=== PATIENT | female | born 1970 | race Caucasian/White ===

== ENCOUNTER 2023-02-13 23:48 | Emergency (ER) | payer MEDICAID ==
[~2023-02-13] VITALS: Ht 165.1 cm; Wt 81.8 kg
[2023-02-13] MEDS ORDERED: ALBU18HF12 IH (23:54)
[2023-02-14] MEDS ORDERED: PredniSONE 20 MG TABLET PO ONE (00:30)
[2023-02-14] MEDS ORDERED: IPRATROPIUM BROMIDE 0.5 MG/2.5 ML NEB SOLUTION NEB ONE (00:30)
[2023-02-14] MEDS ORDERED: ALBUTEROL SULFATE 2.5 MG/0.5 ML NEB SOLUTION NEB ONE (00:30)
[2023-02-14 02:00] VITALS: BP 123/71
[2023-02-14] MEDS ORDERED: AZIT250T9 PO (02:13)
[2023-02-14] MEDS ORDERED: ALBU18HF12 IH (02:13)
[2023-02-14] MEDS ORDERED: PRED-554 PO (02:13)
== END 2023-02-14 02:19 | disposition home or self-care (01) ==
LOC: EMS 23:50
DX: J45.901 Unspecified asthma with (acute) exacerbation (principal); R03.0 Elevated blood-pressure reading, without diagnosis of hypertension; F19.10 Other psychoactive substance abuse, uncomplicated; Z98.890 Other specified postprocedural states
CPT/HCPCS: 99285; 71045; 94640; J7512; J7613

== ENCOUNTER → 2024-08-02 | Emergency (ER) | payer MEDICAID ==
[~2024-08-02] VITALS: Ht 162.6 cm; Wt 81.8 kg
[~2024-08-02] MED LIST: ALBU18HF12 IH; ALBU2.5V39 NEB; PRED-554 PO
[2024-08-02 12:15] VITALS: TEMP 98.3
[2024-08-02 12:38] LABS: COVID AG,FIA SOURCE NASAL SWAB
[2024-08-02 13:20] LABS: SARS-COV2 (COVID) ANTIGEN,FIA Negative (Negative)
[2024-08-02 13:21] LABS: INFLUENZA TYPE A NEGATIVE FOR TYPE A (NEGATIVE); INFLUENZA TYPE B NEGATIVE FOR TYPE B (NEGATIVE)
[2024-08-02 15:15] VITALS: BP 149/82; PULSE 56; RESP 18; O2SAT 96
[2024-08-02] MEDS: PredniSONE 20 MG TABLET PO ONE (16:49)
[2024-08-02 17:08] LABS: BASOPHILS % (AUTO) 0.7 % (0.0-2.0); EOSINOPHILS % (AUTO) 2.2 % (1.0-6.0); HEMATOCRIT 40.6 % (36-46); HEMOGLOBIN 13.5 g/dL (12.0-16.0); LYMPHOCYTES # (AUTO) 2.3 K/uL (1.0-4.8); LYMPHOCYTES % (AUTO) 32.1 % (22.0-44.0); MEAN CORPUSCULAR HEMOGLOBIN 29.9 pg (26.0-34.0); MEAN CORPUSCULAR HGB CONC 33.1 G/dL (31.0-37.0); MEAN CORPUSCULAR VOLUME 90 fL (80-100); MONOCYTES # (AUTO) 0.5 K/uL (0.1-1.0); MONOCYTES % (AUTO) 6.6 % (2.0-9.0); NEUTROPHILS # (AUTO) 4.2 K/uL (1.8-7.7); NEUTROPHILS % (AUTO) 58.4 % (40.0-70.0); PLATELET COUNT (AUTO) 251 K/uL (150-450); RED BLOOD CELL COUNT(AUTO) 4.51 MIL/uL (4.00-5.20); RED CELL DISTRIBUTION WIDTH 13.7 % (11.5-14.5); WHITE BLOOD COUNT (AUTO) 7.2 K/uL (4.5-11.0)
[2024-08-02 17:18] LABS: ANION GAP 11 mmol/L (8-16); CALCIUM, TOTAL 8.9 mg/dL (8.8-10.5); CARBON DIOXIDE 26 mmol/L (22-29); CHLORIDE 104 mmol/L (98-107); CREATININE 0.73 mg/dL (0.60-1.30); GLOMERULAR FILTR. RATE CALC > 60 mL/min (>60); GLUCOSE,RANDOM 154 mg/dL (70-110); POTASSIUM 3.4 mmol/L (3.5-5.1); SODIUM SERUM 141 mmol/L (136-145); UREA NITROGEN, BLOOD 16 mg/dL (7-18)
[2024-08-02 17:24] LABS: ALANINE AMINOTRANSFERASE 21 U/L (12-78); ALBUMIN 3.8 g/dL (3.4-5.0); ALKALINE PHOSPHATASE 66 U/L (46-116); ASPARTATE AMINOTRANSFERASE 21 U/L (15-37); BILIRUBIN,TOTAL 0.6 mg/dL (0.1-1.0); TOTAL PROTEIN, SERUM 7.3 g/dL (6.4-8.2)
[2024-08-02 17:26] LABS: B-TYPE NATRIURETIC PEPTIDE 55 pg/mL (0-100); TROPONIN I-HIGH SENSITIVITY 5 ng/L (<51)
[2024-08-02] MEDS: POTASSIUM CHLORIDE 20 MEQ ER TABLET PO ONE (18:12)
[2024-08-02] MEDS: ALBUTEROL SULFATE 2.5 MG/0.5 ML NEB SOLUTION NEB ONE (18:33)
== END | disposition home or self-care (01) ==
LOC: EMS 12:07
DX: J45.909 Unspecified asthma, uncomplicated (principal); R06.02 Shortness of breath; R05.9 Cough, unspecified; Z20.822 Contact with and (suspected) exposure to COVID-19
CPT/HCPCS: 99285; 71045; 87426; 80053; 83880; 84484; 85025; 87804; 36415; 93005; J7512; J7613

== ENCOUNTER 2024-11-09 18:10 | Emergency (ER) | payer MEDICAID ==
[~2024-11-09] VITALS: Ht 165.1 cm; Wt 81.8 kg
[2024-11-09 18:15] VITALS: BP 144/87; PULSE 62; RESP 18; TEMP 97.6; O2SAT 95
[2024-11-09] MEDS ORDERED: IBUP-1554 PO (20:46)
[2024-11-09] MEDS ORDERED: ACET-66 PO (20:46)
== END 2024-11-09 20:59 | disposition home or self-care (01) ==
LOC: EMS 18:10
DX: S00.93XA Contusion of unspecified part of head, initial encounter (principal); H11.32 Conjunctival hemorrhage, left eye; I10 Essential (primary) hypertension; J45.909 Unspecified asthma, uncomplicated; Z98.890 Other specified postprocedural states; V43.52XA Car driver injured in collision with other type car in traffic accident, initial encounter; Y93.89 Activity, other specified; Y92.410 Unspecified street and highway as the place of occurrence of the external cause; Y99.8 Other external cause status
CPT/HCPCS: 70450; 99284